=== PATIENT | male | born 1975 | race Caucasian/White ===

== ENCOUNTER 2017-06-03 11:33 | Outpatient (CLI) | payer MEDICAID ==
[~2017-06-03] VITALS: Ht 177.8 cm; Wt 110.0 kg
[2017-06-03 11:34] VITALS: BP 125/87
== END 2017-06-03 12:35 | disposition home or self-care (01) ==
LOC: ORTHO 11:33
PROVIDERS: ATTEND Nurse Practitioner Family
DX: S83.241A Other tear of medial meniscus, current injury, right knee, initial encounter (principal); K04.7 Periapical abscess without sinus

== ENCOUNTER 2019-04-28 14:01 | Emergency (ER) | payer MEDICARE, MEDICAID ==
[~2019-04-28] VITALS: Ht 177.8 cm; Wt 109.1 kg
[2019-04-28 14:13] VITALS: BP 171/123
== END 2019-04-28 17:06 | disposition home or self-care (01) ==
LOC: ER 14:01
DX: M25.562 Pain in left knee (principal); F12.90 Cannabis use, unspecified, uncomplicated; Z98.890 Other specified postprocedural states; Z88.5 Allergy status to narcotic agent
CPT/HCPCS: 73564; 99284

== ENCOUNTER 2023-05-04 09:22 | Emergency (ER) | payer MEDICARE, MEDICAID ==
[~2023-05-04] VITALS: Ht 177.8 cm; Wt 109.0 kg
[2023-05-04 09:23] VITALS: BP 156/115; PULSE 125; RESP 16; TEMP 98; O2SAT 98
[2023-05-04] MEDS ORDERED: NAPR-56 PO (11:19)
== END 2023-05-04 11:37 | disposition home or self-care (01) ==
LOC: ER 09:22
DX: S52.292A Other fracture of shaft of left ulna, initial encounter for closed fracture (principal); W18.39XA Other fall on same level, initial encounter; Y93.89 Activity, other specified; Y92.89 Other specified places as the place of occurrence of the external cause; Y99.8 Other external cause status
CPT/HCPCS: 29125; 73080; 73090; 99284; A4565; A6446; A6449